=== PATIENT | female | born 1970 | race Two or more races ===

== ENCOUNTER 2018-09-20 12:01 | Inpatient (IN) | payer OTHER ==
[2018-09-20 12:54] VITALS: BMI 26.5
--- NOTE | 2018-09-20 17:57 | HP ---
CIWA Score Nausea/Vomitin-No Nausea/No Vomiting Muscle Tremors: 1-None Visible, but [place] Anxiety: 4-Mod. Anxious/Guarded Agitation: 4-Moderately Restless Paroxysmal Sweats: 4-Forehead w/Sweat Beads Orientation: 0-Oriented Tacttile Disturbances: 0-None Auditory Disturbances: 0-None Visual Disturbances: 0-None Headache: 0-None Present CIWA-Ar Total Score: 13 - Admission Criteria OASAS Guidelines: Admission for Medically Managed Detox: Requires at least one of the followin. CIWA greater than 12 2. Seizures within the past 24 hours 3. Delirium tremens within the past 24 hours 4. Hallucinations within the past 24 hours 5. Acute intervention needed for co occurring medical disorder 6. Acute intervention needed for co occurring psychiatric disorder 7. Severe withdrawal that cannot be handled at a lower level of care (continued vomiting, continued diarrhea, abnormal vital signs) requiring intravenous medication and/or fluids 8. Patient presents the following: CIWA greater than 12 ([place] 0.122) Admission Criteria Met: Admission criteria met Admission ROS [facility] - [facility] Chief Complaint: Here for alcohol withdrawal. Allergies/Adverse Reactions: Allergies Allergy/AdvReac Type Severity Reaction Status Date / Time fish derived Allergy Severe Difficulty Verified 09/20/18 15:44 Breathing iodine Allergy Severe Swelling Verified 09/20/18 15:44 History of Present Illness: States I'm here to get myself together because I drink a lot. Alcohol use since age 11. Heroin use began at age 16. Currently on [facility] MMTP x 13 years. States on 50 mg Methadone. Nicotine use began at age 11. States Cocaine use rare but used today because was coming in for detox. Has no significant time w/o drinking. Denies hx seizures, overdoses or blackouts. HX: Asthma, HTN, HIV+, Increased LFT's, Abdominal pain and told has pancreas problems MH Hx: Depression. Denies thoughts of harming self or others. States being f/u at [facility] Abd CT scan, on 09/20/18, was r/t evaluation of pancreas - CT scan wnl. States compliant with HIV medication. States takes albuterol nebulizer, as needed. Patient Name: Jessi Vasques Date: 1970 Address: [address] [place] [address] Sex: Female Rx Written Rx Dispensed Drug Quantity Days Supply Prescriber Name 08/14/2018 08/15/2018 zolpidem tartrate 10 mg tablet 31 30 Kaylynn Hernandez 05/31/2018 06/01/2018 zolpidem tartrate 10 mg tablet 30 30 Kai Marquez MD 05/02/2018 05/02/2018 zolpidem tartrate 10 mg tablet 30 30 Kaylynn Hernandez 02/15/2018 03/27/2018 zolpidem tartrate 10 mg tablet 30 30 Kai Marquez MD 02/15/2018 02/16/2018 zolpidem tartrate 10 mg tablet 30 30 AlmaKai whitney MD 01/18/2018 01/18/2018 zolpidem tartrate 10 mg tablet 30 30 AlmaKai whitney MD 12/21/2017 12/21/2017 zolpidem tartrate 10 mg tablet 30 30 AlmaKai MD 11/23/2017 11/23/2017 zolpidem tartrate 10 mg tablet 30 30 AlmaKai MD 10/26/2017 10/26/2017 zolpidem tartrate 10 mg tablet 30 30 AlmaKai whitney MD Exam Limitations: No Limitations - Ebola screening Have you traveled outside of the country in the last 21 days: No Have you had contact with anyone from an Ebola affected area: No Have you been sick,other than usual withdrawal symptoms: No Do you have a fever: No - Review of Systems Constitutional: Diaphoresis EENT: reports: Blurred Vision, Dental Problems (Missing multiple teeth. Chew and swallows okay.) Respiratory: reports: SOB with Exertion (With walking a lot.) Cardiac: reports: No Symptoms Reported GI: reports: Nausea, Other (Abdominal pain is "7", sharp and intermittent. States thinks pain is r/t alcohol use.) : reports: No Symptoms Reported Musculoskeletal: reports: Back Pain (Low back pain only when walks.) Integumentary: reports: No Symptoms Reported Neuro: reports: Numbness (Intermittent numbness in fingers and toes. Not present at this time.) Endocrine: reports: No Symptoms Reported Hematology: reports: No Symptoms Reported Psychiatric: reports: Orientated x3, Agitated, Anxious, Depressed (Denies thoughts of harming self or others.) Patient History - Patient Medical History Hx Anemia: No Hx Asthma: Yes Hx Chronic Obstructive Pulmonary Disease (COPD): No Hx Cancer: No Hx Cardiac Disorders: No Hx Congestive Heart Failure: No Hx Hypertension: Yes Hx Hypercholesterolemia: No Hx Pacemaker: No HX Cerebrovascular Accident: No Hx Seizures: No Hx Dementia: No Hx Diabetes: No Hx Gastrointestinal Disorders: No Hx Liver Disease: Yes (told elevated liver tests) Hx Genitourinary Disorders: No Hx Sexually Transmitted Disorders: No Hx Renal Disease (ESRD): No Hx Thyroid Disease: No Hx Human Immunodeficiency Virus (HIV): Yes (SINCE 2004; ON MEDS) Hx Hepatitis C: Yes Hx Depression: Yes Hx Suicide Attempt: Yes (pill overdose at age 16) Hx Bipolar Disorder: Yes Hx Schizophrenia: Yes - Patient Surgical History Past Surgical History: Yes Hx Neurologic Surgery: No Hx Cataract Extraction: No Hx Cardiac Surgery: No Hx Lung Surgery: No Hx Breast Surgery: No Hx Breast Biopsy: No Hx Abdominal Surgery: No Hx Appendectomy: No Hx Cholecystectomy: No Hx Genitourinary Surgery: No Hx Section: No Hx Orthopedic Surgery: No Other Surgical History: ripped left earlobe repair /liver biopsy Anesthesia Reaction: No - PPD History Previous Implant?: Yes Documented Results: Negative w/proof Implanted On Prior R Admission?: Yes Date: 02/23/13 Results: 0 mm PPD to be Administered?: Yes - Reproductive History Patient is a Female of Child Bearing Age (11 -55 yrs old): Yes Last Menstrual Period: 08/26/18 (Spotty and irregular) Patient : No - Smoking Cessation Smoking history: Current every day smoker Have you smoked in the past 12 months: Yes Aproximately how many cigarettes per day: 2 Hx Chewing Tobacco Use: No Initiated information on smoking cessation: Yes 'Breaking Loose' booklet given: 09/20/18 - Substance & Tx. History Hx Alcohol Use: Yes Hx Substance Use: Yes Substance Use Type: Heroin Hx Substance Use Treatment: Yes (Currently on MMTP ) - Substances Abused Alcohol-vodka Route: Oral Frequency: Daily Amount used: 1 liter Age of first use: 11 Date of Last Use: 09/20/18 Family Disease History - Family Disease History Family Disease History: Diabetes: Father (alcohol), CA: Grandparent ( grandmother ovarian cancer), Other: Father, Mother (HIV, alcohol, psych) Admission Physical Exam [facility] - Vital Signs Vital Signs: Vital Signs - 24 hr 09/20/18 12:52 Temperature 98.6 F Pulse Rate 73 Respiratory 18 Rate Blood Pressure 112/77 - Physical General Appearance: Yes: Appropriately Dressed, Mild Distress, Alcohol on Breath , Sweating (Beads of sweat), Anxious HEENTM: Yes: EOMI (JERKING MOVEMENT OF EYES ON (R) LATERAL GAZE), Hearing grossly Normal, Normocephalic, Normal Voice, MICHAEL (Pipils = 2 mm) Respiratory: Yes: Lungs Clear, Normal Breath Sounds, No Respiratory Distress Neck: Yes: No masses,lesions,Nodules, Supple Breast: Yes: Breast Exam Deferred Cardiology: Yes: Regular Rhythm, Regular Rate, S1, S2 Abdominal: Yes: Normal Bowel Sounds, Non Tender, Soft, Protuberent, Hernia ( Protruding, reducible umbilical hernia.) Genitourinary: Yes: Within Normal Limits Back: Yes: Normal Inspection Musculoskeletal: Yes: full range of Motion, Gait Steady Extremities: Yes: Normal Capillary Refill, Normal Range of Motion Neurological: Yes: director of product management II-XII NML intact (Jerking movement of eyes on (R) lateral gaze), Fully Oriented, Alert, Motor Strength 5/5 Integumentary: Yes: Normal Color, Warm, Diaphoresis Lymphatic: Yes: Within Normal Limits - Diagnostic (1) Alcohol dependence with uncomplicated withdrawal Current Visit: Yes Status: Acute (2) Hypertension Current Visit: Yes Status: Acute Qualifiers: Hypertension type: essential hypertension Qualified Code(s): I10 - Essential (primary) hypertension (3) Methadone maintenance therapy patient Current Visit: Yes Status: Chronic (4) Unspecified nystagmus Current Visit: Yes Status: Acute (5) Asthma Current Visit: Yes Status: Chronic (6) Human immunodeficiency virus infection Current Visit: Yes Status: Chronic (7) Nicotine dependence, uncomplicated Current Visit: Yes Status: Chronic Qualifiers: Nicotine product type: cigarettes Qualified Code(s): F17.210 - Nicotine dependence, cigarettes, uncomplicated Cleared for Admission [facility] - Detox or Rehab [facility] Level of Care: Medically Managed Detox Regimen/Protocol: Librium [facility] Breath Alcohol Content Breath Alcohol Content: 0.122 Urine Pregancy Test - Result Urine Test Results: Negative- NO Line Present Urine Drug Screen - Results Drug Screen Negative: No Urine Drug Screen Results: VARINDER-Cocaine, MTD-Methadone Inpatient Rehab Admission - Rehab Decision to Admit Inpatient rehab admission?: No
[2018-09-20] MEDS ORDERED: MAGNESIUM CITRATE 300 ML BOTTLE PO PRN (18:51)
[2018-09-20] MEDS ORDERED: ACETAMINOPHEN 325 MG TABLET (FP) PO PRN (18:51)
[2018-09-20] MEDS ORDERED: MAG HYDROX/AL HYDROX/SIMETH 30 ML UNIT-DOSE CUP PO PRN (18:51)
[2018-09-20] MEDS ORDERED: LOPERAMIDE HCL 2 MG CAPSULE PO PRN (18:51)
[2018-09-20] MEDS ORDERED: MAGNESIUM HYDROX 2400MG/30ML ORAL SUSPENSION 30 ML CUP PO PRN (18:51)
[2018-09-20] MEDS ORDERED: NICOTINE POLACRILEX 2 MG GUM BC PRN (18:51)
[2018-09-20] MEDS ORDERED: MENTHOL/PHENOL 1 EACH UD MM PRN (18:51)
[2018-09-20] MEDS ORDERED: guaiFENesin 200 MG/10 ML 10 ML UNIT-DOSE CUPS PO PRN (18:52)
[2018-09-20] MEDS ORDERED: chlordiazePOXIDE HCL 25 MG CAPSULE PO ONE (19:15)
[2018-09-20] MEDS: THIAMINE HCL 100 MG TABLET (FP) PO SCH (21:41)
[2018-09-20] MEDS: chlordiazePOXIDE HCL 25 MG CAPSULE PO SCH (22:28)
[2018-09-21] MEDS: chlordiazePOXIDE HCL 25 MG CAPSULE PO SCH ×4 (05:35→22:49)
[2018-09-21] MEDS ORDERED: METHADONE HCL 10 MG TABLET PO ONE (09:20)
[2018-09-21] MEDS ORDERED: METHADONE 40 MG, METHADONE 10 MG, METHADONE 5 MG PO ONE (09:30)
[2018-09-21] MEDS ORDERED: METHADONE HCL 5 MG TABLET ONE (09:46)
[2018-09-21] MEDS ORDERED: METHADONE HCL 10 MG TABLET ONE (09:47)
[2018-09-21] MEDS ORDERED: METHADONE HCL 40 MG DISPERSABLE TABLET ONE (09:47)
[2018-09-21] MEDS ORDERED: PANTOPRAZOLE 20 MG TABLET (FP) PO SCH (10:00)
[2018-09-21] MEDS: PRENATAL VITAMINS W/ FOLIC ACID TABLET (FP) PO SCH (10:30)
[2018-09-21] MEDS: HYDROCHLOROTHIAZIDE 12.5 MG CAPSULE (FP) PO SCH (10:31)
[2018-09-21 10:36] LABS: HEMATOCRIT 42.1 % (32.4-45.2); HEMOGLOBIN 14.8 GM/dL (10.7-15.3); MCH 37.2 pg (25.7-33.7); MEAN CELL VOLUME 106.3 fl (80-96); MEAN PLT VOLUME 9.5 fl (7.5-11.1); PLATELET COUNT 177 K/MM3 (134-434); RBC 3.96 M/mm3 (3.60-5.2); WHITE BLOOD COUNT 4.2 K/mm3 (4.0-10.0)
[2018-09-21 10:54] LABS: ALBUMIN 3.3 g/dl (3.4-5.0); ALK PHOS 87 U/L (45-117); ANION GAP 8 MMOL/L (8-16); BILIRUBIN,TOTAL 0.8 mg/dL (0.2-1); BLOOD UREA NITROGEN 16 mg/dL (7-18); CALCIUM 9.1 mg/dL (8.5-10.1); CHLORIDE 100 mmol/L (98-107); CO2 30 mmol/L (21-32); GLUCOSE,RANDOM 84 mg/dL (74-106); POTASSIUM 3.7 mmol/L (3.5-5.1); SGOT/AST 60 U/L (15-37); SGPT/ALT 31 U/L (13-61); SODIUM 138 mmol/L (136-145); TOT PROT 7.8 g/dl (6.4-8.2)
[2018-09-21] MEDS ORDERED: EMTRICITAB/RILPIVIRI/TENOF ALA (ODEFSEY) TABLET PO ONE (11:00)
[2018-09-21] MEDS: chlordiazePOXIDE HCL 25 MG CAPSULE PO PRN (14:04)
--- NOTE | 2018-09-21 15:41 | PN ---
[facility] CIWA - CIWA Score Nausea/Vomitin-No Nausea/No Vomiting Muscle Tremors: 4-Moderate,w/Arms Extend Anxiety: 4-Mod. Anxious/Guarded Agitation: 4-Moderately Restless Paroxysmal Sweats: 1-Minimal Palms Moist Orientation: 0-Oriented Tacttile Disturbances: 0-None Auditory Disturbances: 0-None Visual Disturbances: 0-None Headache: 0-None Present CIWA-Ar Total Score: 13 [facility] Progress Note (SOAP) Subjective: PT C/O TREMORS, BODY ACHES, INTERMITTENT SLEEP. PT REPORTS SHE IS ON ODEFSEY AND COMPLIANT WITH HER MEDS BUT DID NOT BRING IT. REQUESTING TO RESTART MED. PT WILLING TO HAVE FAMILY MEMBER BRING IN HER MED AND WENT TO THE COUNSELOR TO MAKE A CALL HOME. CALL NOT COMPLETED. Objective: 09/21/18 15:40 Vital Signs 09/21/18 09/21/18 08:00 10:21 Temperature 97.5 F L Pulse Rate 73 75 Respiratory 16 Rate Blood Pressure 138/95 Laboratory Tests 09/21/18 09/21/18 09/21/18 07:40 07:40 07:40 WBC 4.2 RBC 3.96 Hgb 14.8 Hct 42.1 D MCV 106.3 H MCH 37.2 H MCHC 35.0 RDW 14.0 Plt Count 177 D MPV 9.5 Sodium 138 Potassium 3.7 Chloride 100 Carbon Dioxide 30 Anion Gap 8 BUN 16 Creatinine 1.0 Creat Clearance w eGFR 58.69 Random Glucose 84 Calcium 9.1 Total Bilirubin 0.8 AST 60 H ALT 31 Alkaline Phosphatase 87 Total Protein 7.8 Albumin 3.3 L RPR Titer Nonreactive Assessment: 09/21/18 15:40 WITHDRAWAL SX Plan: CONTINUE DETOX PT WILL RESTART ODEFSEY 1 TAB PO DAILY. SHE WILL NOT NEED RX UPON DISCHARGE SHE HAS IT AT HOME.
[2018-09-21] MEDS: IBUPROFEN 400 MG TABLET (FP) PO PRN (20:33)
--- NOTE | 2018-09-21 22:18 | EKG ---
Test Reason : Blood Pressure : / mmHG Vent. Rate : 078 BPM Atrial Rate : 078 BPM P-R Int : 138 ms QRS Dur : 082 ms QT Int : 418 ms P-R-T Axes : 081 069 069 degrees QTc Int : 476 ms NORMAL SINUS RHYTHM NORMAL ECG NO PREVIOUS ECGS AVAILABLE Confirmed by BOGDAN MURDOCK MD ([id number]) on 09/21/2018 10:17:57 PM Referred By: Confirmed By:BOGDAN MURDOCK MD
[2018-09-21] MEDS: MELATONIN 5 MG TABLETS PO PRN (22:49)
[2018-09-21] MEDS: THIAMINE HCL 100 MG TABLET (FP) PO SCH (22:49)
[2018-09-22] MEDS: chlordiazePOXIDE HCL 25 MG CAPSULE PO PRN ×2 (03:05→14:16)
[2018-09-22] MEDS: ALBUTEROL SO4 0.083% IH SOL 2.5 MG/3 ML VIAL.NEB. NEB PRN ×2 (04:00→12:54)
[2018-09-22] MEDS ORDERED: METHADONE HCL 5 MG TABLET ONE (05:01)
[2018-09-22] MEDS ORDERED: METHADONE HCL 10 MG TABLET ONE (05:01)
[2018-09-22] MEDS ORDERED: METHADONE HCL 40 MG DISPERSABLE TABLET ONE (05:01)
[2018-09-22] MEDS: chlordiazePOXIDE HCL 25 MG CAPSULE PO SCH ×3 (05:36→17:22)
[2018-09-22] MEDS: METHADONE 40 MG, METHADONE 10 MG, METHADONE 5 MG PO SCH (05:36)
[2018-09-22] MEDS ORDERED: RANITIDINE HCL 150 MG TABLET (FP) PO SCH ×2 (06:00→10:00)
[2018-09-22] MEDS ORDERED: METHADONE HCL 10 MG TABLET PO SCH (06:00)
[2018-09-22] MEDS: IBUPROFEN 400 MG TABLET (FP) PO PRN (09:26)
[2018-09-22] MEDS: PRENATAL VITAMINS W/ FOLIC ACID TABLET (FP) PO SCH (10:10)
[2018-09-22] MEDS: HYDROCHLOROTHIAZIDE 12.5 MG CAPSULE (FP) PO SCH (10:10)
[2018-09-22] MEDS: EMTRICITAB/RILPIVIRI/TENOF ALA (ODEFSEY) TABLET PO SCH (10:11)
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
[2018-09-22] MEDS ORDERED: chlorproMAZINE HCL 25 MG TABLET PO ONE (18:00)
--- NOTE | 2018-09-22 18:12 | PN ---
[facility] CIWA - CIWA Score Nausea/Vomitin-Mild Nausea/No Vomiting Muscle Tremors: 3 Anxiety: 3 Agitation: 3 Paroxysmal Sweats: 3 Orientation: 0-Oriented Tacttile Disturbances: 0-None Auditory Disturbances: 0-None Visual Disturbances: 0-None Headache: 0-None Present CIWA-Ar Total Score: 13 [facility] Progress Note (SOAP) Subjective: Sweating, chills, tremor, nausea, interrupted sleep Objective: 09/22/18 18:11 Last Vital Signs Temp Pulse Resp BP Pulse Ox 97.2 F L 64 16 96/59 L 09/22/18 17:47 09/22/18 17:47 09/22/18 17:47 09/22/18 17:47 Hypotension noted Laboratory Tests 09/21/18 09/21/18 09/21/18 07:40 07:40 07:40 WBC 4.2 RBC 3.96 Hgb 14.8 Hct 42.1 D MCV 106.3 H MCH 37.2 H MCHC 35.0 RDW 14.0 Plt Count 177 D MPV 9.5 Sodium 138 Potassium 3.7 Chloride 100 Carbon Dioxide 30 Anion Gap 8 BUN 16 Creatinine 1.0 Creat Clearance w eGFR 58.69 Random Glucose 84 Calcium 9.1 Total Bilirubin 0.8 AST 60 H ALT 31 Alkaline Phosphatase 87 Total Protein 7.8 Albumin 3.3 L RPR Titer Nonreactive Labs reviewed Assessment: 09/22/18 18:11 Withdrawal symptoms Hypotension noted Plan: Continue detox Hypotension: asymptomatic, encouraged PO water hydration
[2018-09-22] MEDS: chlordiazePOXIDE 5 MG CAPSULE PO SCH (22:56)
[2018-09-22] MEDS: OLANZapine 5 MG TABLET PO SCH (22:56)
[2018-09-22] MEDS: THIAMINE HCL 100 MG TABLET (FP) PO SCH (22:58)
[2018-09-23] MEDS ORDERED: METHADONE HCL 10 MG TABLET ONE (03:58)
[2018-09-23] MEDS ORDERED: METHADONE HCL 40 MG DISPERSABLE TABLET ONE (03:58)
[2018-09-23] MEDS ORDERED: METHADONE HCL 5 MG TABLET ONE (03:58)
[2018-09-23] MEDS: chlordiazePOXIDE 5 MG CAPSULE PO SCH ×3 (05:53→17:08)
[2018-09-23] MEDS: METHADONE 40 MG, METHADONE 10 MG, METHADONE 5 MG PO SCH (05:54)
[2018-09-23] MEDS: HYDROCHLOROTHIAZIDE 12.5 MG CAPSULE (FP) PO SCH (10:53)
[2018-09-23] MEDS: PRENATAL VITAMINS W/ FOLIC ACID TABLET (FP) PO SCH (10:53)
[2018-09-23] MEDS: EMTRICITAB/RILPIVIRI/TENOF ALA (ODEFSEY) TABLET PO SCH (10:54)
[2018-09-23] MEDS: chlorproMAZINE HCL 25 MG TABLET PO SCH (10:55)
--- NOTE | 2018-09-23 11:24 | PN ---
[facility] Progress Note (SOAP) Subjective: redness to my anal area because i am constantly wiping d/t my diarrhea some shakes Objective: 09/23/18 11:23 Vital Signs Temperature 98.1 F 09/23/18 09:21 Pulse Rate 76 09/23/18 09:21 Respiratory Rate 16 09/23/18 09:21 Blood Pressure 100/76 09/23/18 09:21 O2 Sat by Pulse Oximetry (%) [id number] ambulating no acute distress Assessment: 09/23/18 11:24 mild withdrawal sx Plan: continue detox anusol cream ordered immodium prn increase fluids d/c in am
[2018-09-23] MEDS: HYDROCORTISONE 2.5% TOPICAL CREAM 30 GM TUBE TP SCH ×2 (12:32→22:08)
[2018-09-23] MEDS: ALBUTEROL SO4 0.083% IH SOL 2.5 MG/3 ML VIAL.NEB. NEB PRN (20:52)
[2018-09-23] MEDS: chlordiazePOXIDE HCL 10 MG CAPSULE PO SCH (22:08)
[2018-09-23] MEDS: OLANZapine 5 MG TABLET PO SCH (22:09)
[2018-09-23] MEDS: THIAMINE HCL 100 MG TABLET (FP) PO SCH (22:09)
[2018-09-23] MEDS: MELATONIN 5 MG TABLETS PO PRN (22:10)
[2018-09-24] MEDS ORDERED: METHADONE HCL 40 MG DISPERSABLE TABLET ONE (04:34)
[2018-09-24] MEDS ORDERED: METHADONE HCL 5 MG TABLET ONE (04:34)
[2018-09-24] MEDS ORDERED: METHADONE HCL 10 MG TABLET ONE (04:35)
[2018-09-24] MEDS: chlordiazePOXIDE HCL 10 MG CAPSULE PO SCH (05:53)
[2018-09-24] MEDS: METHADONE 40 MG, METHADONE 10 MG, METHADONE 5 MG PO SCH (05:53)
[2018-09-24 07:33] VITALS: TEMP 97.9
--- NOTE | 2018-09-24 08:51 | DS ---
[facility] Detox Discharge Summary Admission Date: 09/20/18 Discharge Date: 09/24/18 - History Present History: Alcohol Dependence, MMTP - Physical Exam Results Vital Signs: Vital Signs Temperature 97.9 F 09/24/18 07:33 Pulse Rate 67 09/24/18 07:33 Respiratory Rate 18 09/24/18 07:33 Blood Pressure 97/63 09/24/18 07:33 O2 Sat by Pulse Oximetry (%) - Treatment Hospital Course: Detox Protocol Followed, Detoxed Safely, Responded well, Discharged Condition Good, Rehab Referral Accepted - Medication Discharge Medications: Ambulatory Orders Albuterol Sulfate Inhaler - [Ventolin HFA Inhaler -] 2 inh IH Q4H PRN 02/21/13 Diphenhydramine HCl [Benadryl -] 25 mg PO HS PRN 09/20/18 Emtricitab/Rilpiviri/Tenof Ala [Odefsey Tablet] 1 each PO DAILY 09/20/18 Fluticasone/Salmeterol [Advair 250-50 Diskus] 1 each IH BID 09/20/18 Hydrochlorothiazide [Hctz -] 12.5 mg PO DAILY 09/20/18 Propranolol HCl 20 mg PO DAILY 09/20/18 Zolpidem Tartrate [Ambien] 10 mg PO HS PRN 09/20/18 - Diagnosis (1) Alcohol dependence with uncomplicated withdrawal Current Visit: Yes Status: Chronic (2) Hypertension Current Visit: Yes Status: Acute Qualifiers: Hypertension type: essential hypertension Qualified Code(s): I10 - Essential (primary) hypertension (3) Schizo-affective schizophrenia, chronic condition Current Visit: Yes Status: Acute (4) Unspecified nystagmus Current Visit: Yes Status: Acute (5) Asthma Current Visit: Yes Status: Chronic (6) Human immunodeficiency virus infection Current Visit: Yes Status: Chronic (7) Methadone maintenance therapy patient Current Visit: Yes Status: Chronic (8) Nicotine dependence, uncomplicated Current Visit: Yes Status: Chronic Qualifiers: Nicotine product type: cigarettes Qualified Code(s): F17.210 - Nicotine dependence, cigarettes, uncomplicated (9) MMTP Current Visit: Yes Status: Chronic - AMA Did Patient Leave Against Medical Advice: Yes (referred to MMTP program)
[2018-09-24 10:15] VITALS: BP 93/62; PULSE 92
[2018-09-24] MEDS: HYDROCORTISONE 2.5% TOPICAL CREAM 30 GM TUBE TP SCH (10:22)
[2018-09-24] MEDS: PRENATAL VITAMINS W/ FOLIC ACID TABLET (FP) PO SCH (10:22)
[2018-09-24] MEDS: HYDROCHLOROTHIAZIDE 12.5 MG CAPSULE (FP) PO SCH (10:22)
[2018-09-24] MEDS: EMTRICITAB/RILPIVIRI/TENOF ALA (ODEFSEY) TABLET PO SCH (10:22)
[2018-09-24] MEDS: chlorproMAZINE HCL 25 MG TABLET PO SCH (10:23)
== END 2018-09-24 11:00 | disposition home or self-care (01) | DRG 773 ==
LOC: YASAS 12:01 → Y6N 17:07
PROVIDERS: ADMIT Surgery; ATTEND Surgery
PROC: HZ2ZZZZ Detoxification Services for Substance Abuse Treatment (ICD-10-PCS; principal; 2018-09-20)
DX: F10.230 Alcohol dependence with withdrawal, uncomplicated (principal); F11.20 Opioid dependence, uncomplicated; F17.210 Nicotine dependence, cigarettes, uncomplicated; F25.9 Schizoaffective disorder, unspecified; I10 Essential (primary) hypertension; H55.00 Unspecified nystagmus; Z21 Asymptomatic human immunodeficiency virus [HIV] infection status; J45.909 Unspecified asthma, uncomplicated; I95.9 Hypotension, unspecified; Z91.013 Allergy to seafood; Z91.5 Personal history of self-harm
CPT/HCPCS: 36415; 80053; 85027; 86593; 93005; 93010; 94640

== ENCOUNTER 2020-10-01 14:48 | Inpatient (IN) | payer OTHER ==
[2020-10-01 18:51] VITALS: BMI 21.7
[2020-10-01] MEDS ORDERED: ONDANSETRON *ODT* 4 MG TABLET SL PRN (23:21)
[2020-10-01] MEDS ORDERED: MENTHOL/PHENOL 1 EACH UD MM PRN (23:21)
[2020-10-01] MEDS ORDERED: ACETAMINOPHEN 325 MG TABLET (FP) PO PRN (23:21)
[2020-10-01] MEDS ORDERED: MAG HYDROX/AL HYDROX/SIMETH 30 ML UNIT-DOSE CUP PO PRN (23:21)
[2020-10-01] MEDS ORDERED: MAGNESIUM HYDROX 2400MG/30ML ORAL SUSPENSION 30 ML CUP PO PRN (23:21)
[2020-10-01] MEDS ORDERED: NICOTINE POLACRILEX 2 MG GUM BUC PRN (23:21)
[2020-10-01] MEDS ORDERED: IBUPROFEN 400 MG TABLET (FP) PO PRN (23:21)
[2020-10-01] MEDS ORDERED: MAGNESIUM CITRATE 300 ML BOTTLE PO PRN (23:21)
[2020-10-01] MEDS ORDERED: BISMUTH SUBSALICYLATE 524 MG/30 ML UD PO PRN (23:21)
[2020-10-01] MEDS ORDERED: METHADONE HCL 10 MG TABLET PO ONE (23:28)
[2020-10-02] MEDS: chlordiazePOXIDE HCL 25 MG CAPSULE PO SCH ×5 (02:20→22:42)
[2020-10-02] MEDS ORDERED: chlordiazePOXIDE HCL 25 MG CAPSULE ONE (02:28)
[2020-10-02] MEDS: chlordiazePOXIDE HCL 25 MG CAPSULE PO PRN (02:31)
[2020-10-02 10:29] LABS: HEMATOCRIT 43.1 % (32.4-45.2); MCH 33.3 pg (25.7-33.7); MCHC 34.9 g/dl (32.0-36.0); MEAN CELL VOLUME 95.6 fl (80-96); MEAN PLT VOLUME 10.3 fl (7.5-11.1); PLATELET COUNT 194 K/MM3 (134-434); RBC 4.51 M/mm3 (3.60-5.2); RDW 13.4 % (11.6-15.6); WHITE BLOOD COUNT 8.5 K/mm3 (4.0-10.0)
[2020-10-02 10:30] LABS: POTASSIUM 3.3 mmol/L (3.5-5.1)
[2020-10-02 10:39] LABS: ALBUMIN 3.5 g/dl (3.4-5.0); BLOOD UREA NITROGEN 15.2 mg/dL (7-18)
[2020-10-02 10:40] LABS: CALCIUM 9.4 mg/dL (8.5-10.1)
[2020-10-02 10:43] LABS: BILIRUBIN,TOTAL 0.8 mg/dL (0.2-1); CREATININE 0.7 mg/dL (0.55-1.3); TOT PROT 7.4 g/dl (6.4-8.2)
[2020-10-02] MEDS ORDERED: FLU VACCINE (FLULAVAL) PF 60 MCG/0.5 ML SYRINGE 2020-2021 IM ONE (12:00)
[2020-10-02] MEDS ORDERED: PNEUMOC 13-VAL CONJ-DIP CRM/PF 0.5 ML DISP.SYRIN IM ONE (12:00)
[2020-10-02] MEDS: PRENATAL VITAMINS W/ FOLIC ACID TABLET (FP) PO SCH (12:30)
[2020-10-02] MEDS: NICOTINE 7 MG/24 HOURS TOPICAL PATCH TD SCH (12:33)
[2020-10-02] MEDS: METHOCARBAMOL 500 MG TABLET PO PRN (17:44)
[2020-10-02] MEDS: ACETAMINOPHEN 325 MG TABLET (FP) PO PRN (17:46)
[2020-10-02] MEDS: MELATONIN 5 MG TABLETS PO PRN (22:42)
[2020-10-02] MEDS: THIAMINE HCL 100 MG TABLET (FP) PO SCH (22:42)
[2020-10-03] MEDS: chlordiazePOXIDE HCL 25 MG CAPSULE PO PRN ×3 (00:49→15:19)
[2020-10-03] MEDS: METHOCARBAMOL 500 MG TABLET PO PRN ×3 (00:50→17:49)
[2020-10-03] MEDS: chlordiazePOXIDE HCL 25 MG CAPSULE PO SCH ×4 (05:38→22:59)
[2020-10-03] MEDS: PRENATAL VITAMINS W/ FOLIC ACID TABLET (FP) PO SCH (09:25)
[2020-10-03] MEDS: NICOTINE 7 MG/24 HOURS TOPICAL PATCH TD SCH (09:26)
[2020-10-03] MEDS: ACETAMINOPHEN 325 MG TABLET (FP) PO PRN (15:17)
[2020-10-03] MEDS ORDERED: POTASSIUM CHLORIDE TABS 20 MEQ TABLET.ER (FP) PO ONE (18:10)
[2020-10-03] MEDS: MELATONIN 5 MG TABLETS PO PRN (23:00)
[2020-10-03] MEDS: THIAMINE HCL 100 MG TABLET (FP) PO SCH (23:01)
[2020-10-04] MEDS ORDERED: chlordiazePOXIDE HCL 10 MG CAPSULE PO PRN
[2020-10-04] MEDS: chlordiazePOXIDE HCL 10 MG CAPSULE PO SCH ×2 (06:20→10:12)
[2020-10-04] MEDS: METHOCARBAMOL 500 MG TABLET PO PRN (06:21)
[2020-10-04] MEDS: ACETAMINOPHEN 325 MG TABLET (FP) PO PRN (06:21)
[2020-10-04 07:10] VITALS: BP 108/74; PULSE 58; TEMP 97.3
[2020-10-04] MEDS: PRENATAL VITAMINS W/ FOLIC ACID TABLET (FP) PO SCH (09:35)
[2020-10-04] MEDS: NICOTINE 7 MG/24 HOURS TOPICAL PATCH TD SCH (09:35)
[2020-10-04 10:52] LABS: POTASSIUM 5.5 mmol/L (3.5-5.1)
[2020-10-04 10:54] LABS: BLOOD UREA NITROGEN 10.3 mg/dL (7-18); CALCIUM 9.6 mg/dL (8.5-10.1)
[2020-10-04 10:59] LABS: CREATININE 0.7 mg/dL (0.55-1.3)
[2020-10-05] MEDS ORDERED: chlordiazePOXIDE HCL 10 MG CAPSULE PO SCH (05:00)
[2020-10-06] MEDS ORDERED: chlordiazePOXIDE HCL 10 MG CAPSULE PO ONE (05:00)
== END 2020-10-04 09:48 | disposition left against medical advice (07) | DRG 770 ==
LOC: YASAS 14:48 → Y3N 10-02 09:32
PROVIDERS: ADMIT Allergy & Immunology; ATTEND Allergy & Immunology
PROC: HZ2ZZZZ Detoxification Services for Substance Abuse Treatment (ICD-10-PCS; principal; 2020-10-02)
DX: F10.230 Alcohol dependence with withdrawal, uncomplicated (principal); F11.20 Opioid dependence, uncomplicated; F14.20 Cocaine dependence, uncomplicated; F13.20 Sedative, hypnotic or anxiolytic dependence, uncomplicated; F16.20 Hallucinogen dependence, uncomplicated; F17.210 Nicotine dependence, cigarettes, uncomplicated; Z21 Asymptomatic human immunodeficiency virus [HIV] infection status; E87.6 Hypokalemia; I10 Essential (primary) hypertension; H55.00 Unspecified nystagmus; J45.909 Unspecified asthma, uncomplicated; Z86.19 Personal history of other infectious and parasitic diseases; Z91.048 Other nonmedicinal substance allergy status; Z91.013 Allergy to seafood
CPT/HCPCS: 36415; 80048; 80053; 85027; 86780; C9803; U0003